=== PATIENT | male | born 1950 | race African-American/Black ===

== ENCOUNTER 2017-12-24 17:56 | Emergency (ER) | payer SELFPAY ==
[~2017-12-24] VITALS: Ht 182.9 cm; Wt 72.7 kg
[2017-12-24] MEDS ORDERED: LIDOCAINE HCL 1% 10 ML VIAL INJ ONE (18:15)
[2017-12-24] MEDS ORDERED: PERTUSS(ACELL),DIPH,TET VAC/PF 0.5 ML VIAL IM ONE (18:15)
[2017-12-24] MEDS ORDERED: AMLO2.5T PO (18:18)
[2017-12-24] MEDS ORDERED: TRAM50TA4 PO (18:18)
[2017-12-24] MEDS ORDERED: HYDR25TA PO (18:18)
[2017-12-24 20:03] VITALS: BP 114/72
== END 2017-12-24 20:27 | disposition home or self-care (01) ==
LOC: EMS 17:59 → EDSEX 17:59 → EMS 20:27
DX: S01.511A Laceration without foreign body of lip, initial encounter (principal); I10 Essential (primary) hypertension; F17.200 Nicotine dependence, unspecified, uncomplicated; R22.0 Localized swelling, mass and lump, head; Z02.89 Encounter for other administrative examinations; Y35.811A Legal intervention involving manhandling, law enforcement official injured, initial encounter; Y93.89 Activity, other specified; Y92.89 Other specified places as the place of occurrence of the external cause; Y99.8 Other external cause status
CPT/HCPCS: 12011; 70450; 70486; 90471; 90715; 99284; J3490